=== PATIENT | female | born 2000 | race Caucasian/White ===

== ENCOUNTER 2022-09-18 17:43 | Emergency (ER) | payer MEDICAID ==
[~2022-09-18] VITALS: Ht 154.9 cm; Wt 54.4 kg
[2022-09-18 17:56] VITALS: BP 107/70
--- NOTE | 2022-09-18 17:59 | NUR ---
22 y/o female bib self, c/o dysuria, foul smelling urine, low back and pelvic cramping 8/10 pain, increased urinary frequency for 3 weeks. pt states she has bright red blood with recent bms. denies black tarry stool or n/v/d. a&ox4, ambulates with steady gait. pmh: taz askew med: denies
[2022-09-18 18:25] LABS: APPEARANCE,URINE CLEAR (CLEAR); BILIRUBIN,URINE NEGATIVE (NEGATIVE); BLOOD, URINE TRACE-I (NEGATIVE); COLOR,URINE YELLOW (YELLOW); NITRITE, URINE POSITIVE (NEGATIVE); UGLUCOSE NEGATIVE (NEGATIVE)
[2022-09-18 18:31] LABS: LEUKOCYTE ESTERASE ,URINE 2+ (NEGATIVE)
[2022-09-18] MEDS ORDERED: PYR100 PO (18:48)
[2022-09-18] MEDS ORDERED: DOCU-299 PO (18:48)
[2022-09-18] MEDS ORDERED: LEVO750T75 PO (18:48)
[2022-09-18] MEDS ORDERED: PHEN1SUP5 RC (18:48)
[2022-09-18 18:58] LABS: RBC,URINE 0-5 /HPF (0-5); WBC,URINE 80-100 /HPF (0-5)
[2022-09-18] MEDS ORDERED: KETOROLAC 30 MG/ML VIAL IM ONE (19:10)
[2022-09-18 20:00] VITALS: BP 110/78
--- NOTE | 2022-09-18 20:00 | NUR ---
Patient discharged with v/s stable. Written and verbal after care instructions given and explained. Patient alert, oriented and verbalized understanding of instructions. Ambulatory with steady gait. All questions addressed prior to discharge. ID band removed. Patient advised to follow up with PMD. Rx of COLACE, LEVAQUIN, PYRIDIUM given. Patient educated on indication of medication including possible reaction and side effects. Opportunity to ask questions provided and answered.
== END 2022-09-18 20:00 | disposition home or self-care (01) ==
LOC: MED 17:43
DX: N12 Tubulo-interstitial nephritis, not specified as acute or chronic (principal); K92.1 Melena; M54.50 Low back pain, unspecified; R35.0 Frequency of micturition; Z79.899 Other long term (current) drug therapy
CPT/HCPCS: 81001; 81025; 87086; 96372; 99283; J1885

== ENCOUNTER 2024-03-25 17:23 | Emergency (ER) | payer MEDICAID ==
[~2024-03-25] VITALS: Ht 157.5 cm; Wt 54.4 kg
[~2024-03-25 17:23] MED LIST: DOCU-299 PO; LEVO750T75 PO; PHEN1SUP5 RC; PYR100 PO
[2024-03-25 17:47] VITALS: BP 130/83; PULSE 105; RESP 20; TEMP 97.3; O2SAT 98
[2024-03-25] MEDS: NACL 0.9% 1,000 ML IV SCH (18:48)
[2024-03-25 19:17] LABS: BASOPHILS % (AUTO) 0.1 % (0.0-2.0); EOSINOPHILS % (AUTO) 0.1 % (0.0-4.0); HEMATOCRIT 40.7 % (36-48); HEMOGLOBIN 13.7 g/dL (12.0-16.0); LYMPHOCYTES # (AUTO) 0.7 K/uL (2.5-16.5); MEAN CORPUSCULAR HEMOGLOBIN 31 pg (27-31); MEAN CORPUSCULAR HGB CONC 34 g/dL (33-37); MEAN CORPUSCULAR VOLUME 90.9 fL (80-94); MONOCYTES # (AUTO) 0.3 K/uL (0.8-1.0); MONOCYTES % (AUTO) 2.9 % (1.7-9.3); NEUTROPHILS % (AUTO) 90.9 % (42.2-75.2); PLATELET COUNT (AUTO) 177 K/uL (140-450); RED BLOOD CELL COUNT(AUTO) 4.48 MIL/uL (4.20-5.40); RED CELL DISTRIBUTION WIDTH 13.5 % (11.6-13.7)
[2024-03-25 19:25] VITALS: O2SAT 99
[2024-03-25 19:32] LABS: APPEARANCE,URINE CLEAR (CLEAR); BILIRUBIN,URINE 1+ (NEGATIVE); BLOOD, URINE 2+ (NEGATIVE); COLOR,URINE YELLOW (YELLOW); LEUKOCYTE ESTERASE ,URINE NEGATIVE (NEGATIVE); NITRITE, URINE NEGATIVE (NEGATIVE); PROTEIN,URINE TRACE (NEGATIVE); UGLUCOSE NEGATIVE (NEGATIVE); UROBILINOGEN,URINE 0.2 EU/dL (0.2 - 1)
[2024-03-25 19:33] LABS: ANION GAP 18.3 (8-16); CALCIUM 9.2 mg/dL (8.5-10.1); CREATININE 0.7 mg/dL (0.6-1.3); POTASSIUM 3.3 mmol/L (3.5-5.1)
[2024-03-25 19:37] LABS: ALBUMIN 4.2 g/dL (3.4-5.0); BILIRUBIN,DIRECT 0.1 mg/dL (0.0-0.3); TOTAL BILIRUBIN 0.8 mg/dL (0.0-1.0); TOTAL PROTEIN, SERUM 7.8 g/dL (6.4-8.2)
[2024-03-25 19:37] LABS: ICTOTEST NEGATIVE (NEGATIVE)
[2024-03-25] MEDS ORDERED: ONDANSETRON 4 MG/2 ML VIAL ONE (19:39)
[2024-03-25] MEDS ORDERED: KETOROLAC 30 MG/ML VIAL ONE (19:39)
[2024-03-25 19:40] LABS: BACTERIA,URINE 10-30 (MOD) /HPF (None Seen); MUCUS,URINE 1+ /LPF (None Seen); RBC,URINE 0-5 /HPF (0-5); SQUAMOUS EPITHELIAL CELL,UR 4-10 (MOD) /LPF (0-3 (FEW)); WBC,URINE 0-5 /HPF (0-5)
[2024-03-25] MEDS: ONDANSETRON 4 MG/2 ML VIAL IVP ONE (19:40)
[2024-03-25] MEDS: KETOROLAC 30 MG/ML VIAL IVP ONE (19:45)
[2024-03-25] MEDS ORDERED: IBUP-1842 PO (20:11)
[2024-03-25] MEDS ORDERED: ONDA-188 SL (20:11)
[2024-03-25] MEDS ORDERED: SULF-58 PO (20:11)
[2024-03-25] MEDS ORDERED: cefTRIAXone 1,000 MG VIAL ONE (20:29)
[2024-03-25] MEDS: NACL 0.9% 1,000 ML IV ONE (20:44)
[2024-03-25 21:11] VITALS: BP 109/60; PULSE 80; RESP 18; TEMP 98.3; O2SAT 99
== END 2024-03-25 21:11 | disposition home or self-care (01) ==
LOC: MED 17:23
DX: N39.0 Urinary tract infection, site not specified (principal); R51.9 Headache, unspecified; R11.2 Nausea with vomiting, unspecified; R19.7 Diarrhea, unspecified; J45.909 Unspecified asthma, uncomplicated; Z86.69 Personal history of other diseases of the nervous system and sense organs; Z79.1 Long term (current) use of non-steroidal anti-inflammatories (NSAID); Z79.899 Other long term (current) drug therapy
CPT/HCPCS: 36415; 76856; 80048; 80076; 81001; 83690; 85025; 87086; 96361; 96365; 96375; 99285; J0696; J1885; J2405; J7030